=== PATIENT | female | born 1990 | race Caucasian/White ===

== ENCOUNTER → 2020-02-02 11:24 | Outpatient (BNVA) | payer MEDICAID, SELFPAY | PROVIDERS: Family Provider Nurse Practitioner Family; PCP Nurse Practitioner Family; Visit Provider Emergency Medicine | DX: R68.89 Other general symptoms and signs (principal); R10.9 Unspecified abdominal pain | CPT/HCPCS: 80053; 81003; 83690; 85025; 87493; 87804 ==

== ENCOUNTER 2020-02-03 12:31 | Outpatient (CLI) | payer MEDICAID, SELFPAY ==
--- NOTE | 2020-02-03 14:00 | CT_ITS ---
WS: [id number] CT ABDOMEN AND PELVIS WITH CONTRAST HISTORY: acute abdominal pain TECHNIQUE: Imaging performed of the abdomen and pelvis with IV contrast. Single phase imaging of the abdomen. Coronal and sagittal reformats are submitted. All CT scans at [facility] use at least one of these dose optimization techniques: automated exposure control; mA and/or kV adjustment per patient size (includes targeted exams where dose is matched to clinical indication); or iterativ e reconstruction. IV CONTRAST: Omnipaque 300; 95 mL IV. Oral contrast: Yes. DLP: 1858.51 mGy.cm COMPARISON: None available. Lower thorax: Lung bases are clear. Heart is normal size. No hiatal hernia. Liver/biliary system: Normal size with no intrahepatic dilatation. Gallbladder: Normal. No gallstones or wall thickening. No pericholecystic fluid. Pancreas: Normal. Spleen: Normal. Adrenal glands: Normal. Right kidney: Normal. Left kidney: Normal. Aorta: Normal. Lymphadenopathy: There are very few small mesenteric lymph nodes measuring up to 8 mm. Free fluid: None. GI tract: The appendix is normal. No GI tract obstruction. No significant diverticular disease. No wa ll thickening. Abdominal wall: Unremarkable abdominal wall. No hernia. Pelvis: Uterus is midline. Large LEFT ovarian cyst measures 5.2 x 4.8 cm. No free fluid in the pelvis . No adenopathy. Bones: Unremarkable. CT/CT abdomen pelvis w con* [id number] IMPRESSION: 1. No acute abdominal or pelvic abnormalities. 2. Small hiatal hernia. 3. Normal appendix. 4. Large LEFT ovarian cyst measuring 5.2 x 4.8 cm. 5. Scattered mesenteric lymph nodes. Most typical for mesenteric adenitis.
[2020-02-03] MEDS: iohexol 300 mg/mL 100 mL Btl 95 ML IV (14:39)
== END 2020-02-03 12:32 | disposition home or self-care (01) ==
LOC: RAD 12:34
PROVIDERS: Family Provider Nurse Practitioner Family; PCP Nurse Practitioner Family; Visit Provider Emergency Medicine
DX: K44.9 Diaphragmatic hernia without obstruction or gangrene (principal); N83.202 Unspecified ovarian cyst, left side; R10.9 Unspecified abdominal pain
CPT/HCPCS: 74177

== ENCOUNTER → 2020-03-09 09:50 | Outpatient (BNVA) | payer MEDICAID, SELFPAY | PROVIDERS: Family Provider Nurse Practitioner Family; PCP Nurse Practitioner Family; Visit Provider Family Medicine | DX: S99.912A Unspecified injury of left ankle, initial encounter (principal); X58.XXXA Exposure to other specified factors, initial encounter; M77.32 Calcaneal spur, left foot | CPT/HCPCS: 73610 ==